=== PATIENT | male | born 1985 ===

== ENCOUNTER 2025-03-29 15:53 | Emergency (ER) | payer BC ==
[~2025-03-29] VITALS: Ht 188 cm; Wt 106.6 kg
[2025-03-29 17:41] LABS: Source, Urine Clean Catch
[2025-03-29 17:44] LABS: Bilirubin, Urine Neg (Neg); Glucose Qualitative, Urine Neg (Neg); Ketones, Urine Neg (Neg); Leukocyte Esterase, Urine 1+ (Neg); Protein, Urine 2+ (Neg); Specific Gravity, Urine 1.010 (1.003-1.022); Urobilinogen, Urine NORM (Normal)
[2025-03-29 19:15] LABS: Red Blood Cells, Urine TNTC /hpf (0-2)
[2025-03-29 19:56] LABS: Color, Urine Pale Yellow (P-Yellow)
[2025-03-29] MEDS ORDERED: NS 1,000 ML IV SCH (20:15)
[2025-03-30 00:41] LABS: Chlamydia Trachomatis Urine NOT DETECTED (NOT DETECT); Neisseria Gonorrhoea Urine NOT DETECTED (NOT DETECT)
[2025-03-30] MEDS ORDERED: CEPH500 PO (01:09)
== END 2025-03-30 01:16 | disposition home or self-care (01) ==
LOC: ER 15:53
PROVIDERS: Physician Assistant; Student in an Organized Health Care Education/Training Program
DX: R31.9 Hematuria, unspecified (principal); N48.89 Other specified disorders of penis
CPT/HCPCS: 74177; 81001; 87086; 87491; 87591; A9270; J7030; Q9967